=== PATIENT | female | born 1955 | race Caucasian/White ===

== ENCOUNTER 2020-09-27 13:32 | Outpatient (CLI) | payer OTHER, SELFPAY ==
--- NOTE | ~2020-09-27 | US_ITS ---
EXAMINATION: US carotid duplex BI DATE: 09/27/2020 14:52 INDICATION: Dizziness. TECHNIQUE: Grayscale, color Doppler, and pulsed Doppler images of the cervical carotid arteries were obtained. The degree of vessel stenosis is placed in one of the following categories: normal, <50%, 5 0-69%, >=70% but less than near-occlusion, near-occlusion, or total occlusion. Note that percent sten osis relative to normal distal artery lumen diameter is indirectly measured from velocity measurement s as described by Sarkis, et al. Radiology 2003; 229:340-346. COMPARISON: None. FINDINGS: RIGHT: The right common carotid artery (CCA) peak systolic velocity (PSV) is 84 cm/s. The right internal car otid artery (ICA) PSV is 99 cm/s. The right ICA end-diastolic velocity (EDV) is 33 cm/s. The right IC A/CCA PSV ratio is 1.2. Grayscale and color Doppler images yield an estimate of <50% diameter reducti on from plaque in the ICA. There is antegrade flow in the right vertebral artery. LEFT: The left CCA PSV is 98 cm/s. The left ICA PSV is 76 cm/s. The left ICA EDV is 20 cm/s. The left ICA/C CA PSV ratio is 0.8. Grayscale and color Doppler images yield an estimate of <50% diameter reduction from plaque in the ICA. There is antegrade flow in the left vertebral artery. IMPRESSION: 1. <50% stenosis in the right internal carotid artery. 2. <50% stenosis in the left internal carotid artery. Reviewed, dictated and finalized at location A.
== END 2020-09-27 13:33 | disposition home or self-care (01) ==
LOC: CHSIMG 13:36
PROVIDERS: PCP Family Medicine; Visit Provider Physician Assistant
DX: R42 Dizziness and giddiness (principal)
CPT/HCPCS: 93880

== ENCOUNTER 2021-02-15 08:08 | Outpatient (CLI) | payer OTHER, SELFPAY ==
--- NOTE | ~2021-02-15 | XR_ITS ---
XR chest 2V DATE: 02/15/2021 08:49 INDICATION: Chest pain, tightness, exertional dyspnea TECHNIQUE: 2 views COMPARISON: None FINDINGS: Normal heart size. No hilar or mediastinal enlargement. No pulmonary infiltrate or consol idation, pulmonary vascular congestion or pleural effusion or pneumothorax. There is aortic arch neo cification. Diffuse osteopenia. [place] device, right humeral head. Surgical clips, upper abdomen IMPRESSION: No active cardiopulmonary disease Reviewed, dictated and finalized at location A.
--- NOTE | ~2021-02-15 | MM_ITS ---
EXAMINATION: MM screening rachel BI w cody HISTORY: Screening mammogram TECHNIQUE: Craniocaudal and mediolateral oblique 3-D tomosynthesis images were obtained and synthetic 2-D images were generated. CAD analysis was submitted and interpreted. COMPARISON: No prior mammogram is available for comparison at this institution. BREAST PARENCHYMAL COMPOSITION: The breasts are almost entirely fatty. FINDINGS: There is no evidence of suspicious mass, calcification, or architectural distortion to sugg est malignancy in either breast. There has been no suspicious interval change. IMPRESSION: 1. No mammographic evidence of malignancy. 2. Recommend routine screening mammography in one year. BI-RADS Category 1: Negative Reviewed, dictated and finalized at location A.
--- NOTE | 2021-02-15 08:35 | ECG_ITS ---
Measurements Intervals [place] Rate: 77 P: 64 MO: 142 QRS: 52 QRSD: 90 T: 90 QT: 358 QTc: 405 Interpretive Statements SINUS RHYTHM BORDERLINE T WAVE ABNORMALITY- ANTEROLAT/HIGH LAT LEADS BASELINE WANDER- I, AVR, AVF, V2 BORDERLINE ECG Electronically Signed On 02-15-2021 9:02:59 CDT by Lloyd Alvarez D.O.
== END 2021-02-15 08:09 | disposition home or self-care (01) ==
LOC: CHSIMG 08:11
PROVIDERS: PCP Family Medicine; Visit Provider Physician Assistant
DX: R06.00 Dyspnea, unspecified (principal)
CPT/HCPCS: 71046; 77063; 77067; 93005

== ENCOUNTER 2021-03-02 14:10 | Outpatient (CLI) | payer OTHER, SELFPAY ==
--- NOTE | 2021-03-02 15:00 | ECHO_ITS ---
Patient Info Name: Mandy Torrez Age: 65 years : 1955 Gender: Female Ht: 65 in Wt: 205 lbs BSA: 2.10 m2 HR: 67 bpm BP: 185 / 87 mmHg Exam Date: 03/02/2021 2:16 PM Exam Location: [facility] Patient Status: Outpatient Admit Date: 03/02/2021 Staff Ordering Physician: Cheyanne, Travis MORTON Marketing Services Specialist: Samy Hodgson, TRINH, RT Attending Provider: Cheyanne, Travis MORTON Exam Type: CA echo doppler color flow Study Info Indications R06.02 - Shortness of breath Complete two-dimensional, color flow and Doppler transthoracic echocardiogram is performed. Strain analysis performed. Summary 1. Complete two-dimensional, color flow and Doppler transthoracic echocardiogram is performed. 2. Left ventricular chamber dimension is normal. 3. Left ventricular systolic function is normal, estimated at 60-65%. 4. The left ventricular diastolic function is grade I diastolic dysfunction. 5. E/e' 9 is minimally elevated. 6. Global longitudinal strain is normal at -17.6%. 7. Left atrial chamber dimension is mildly enlarged. 8. The mitral valve has moderately calcified annulus. 9. There is trace mitral valve regurgitation. Left Ventricle E/e' 9 is minimally elevated. Global longitudinal strain is normal at -17.6%. Left ventricular chamber dimension is normal. Left ventricular systolic function is normal, estimated at 60-65%. The left ventricular diastolic function is grade I diastolic dysfunction. Right Ventricle Right ventricular systolic function is normal and with normal TAPSE 2.1 cm. Right ventricular chamber dimension is normal. Left Atria Left atrial chamber dimension is mildly enlarged. Right Atria Right atrial chamber dimension is normal. Aortic Valve The aortic valve is trileaflet. There is no aortic valve stenosis. There is no aortic valve regurgitation. Pulmonic Valve There is no pulmonic regurgitation. Mitral Valve The mitral valve has moderately calcified annulus. There is no mitral valve stenosis. There is trace mitral valve regurgitation. Tricuspid Valve There is no tricuspid valve regurgitation. Pericardium/Pleural There is no pericardial effusion. Inferior Vena Cava Normal inferior vena cava with >50% collapse upon inspiration consistent with normal right atrial pressure, 5 mmHg. Aorta The aortic root size at the sinus of Valsalva is normal. Left Ventricular Outflow Tract Name Value Normal LVOT 2D LVOT Diameter 2.0 cm LVOT Doppler LVOT Peak Velocity 84 cm/s LVOT Peak Gradient 3 mmHg LVOT Mean Gradient 1 mmHg LVOT VTI 20 cm LVOT VTI/AV VTI Ratio 0.7 LVOT Stroke Volume 64 ml Mitral Valve Name Value Normal MV Doppler MV Decel [place]
== END 2021-03-02 14:11 | disposition home or self-care (01) ==
LOC: CHSIMG 14:11
PROVIDERS: PCP Family Medicine; Visit Provider Physician Assistant
DX: R06.00 Dyspnea, unspecified (principal)
CPT/HCPCS: 93306

== ENCOUNTER 2021-04-17 07:41 | Outpatient (CLI) | payer OTHER, SELFPAY ==
--- NOTE | 2021-04-17 08:20 | EST_ITS ---
Patient Info Name: Mandy Torrez Age: 65 years : 1955 Gender: Female Ht: 64 in Wt: 239 lbs BSA: 2.27 m2 HR: 71 bpm BP: 157 / 86 mmHg Heart Rhythm: Sinus Rhythm Technical Quality: Excellent Exam Date: 04/17/2021 8:34 AM Exam Location: [facility], [place] Patient Status: Outpatient Admit Date: 04/17/2021 Staff Ordering Physician: Cheyanne, Travis MORTON Attending Provider: Cheyanne, Travis MORTON Exercise Technologist: Jossie Heaton CRT Exercise Physician: Jeanine Triplett CEP Exam Type: CA stress milka w NM Study Info Indications VÁZQUEZ - A nuclear stress test was performed. History/Risk Factors Tobacco Use: Former History/Risk Factors Former Smoker. VÁZQUEZ. Summary 1. 1. Negative Lexiscan stress test for ischemic ST changes by ECG criteria. 2. 2. Baseline hypertension. 3. 3. Nuclear scan to follow and will be reported separately. Please correlate with it. Protocol: LEXISCAN Stress ECG Details Stage: REST Duration (min): 0 min : 53 sec HR (bpm): 70 SBP (mmHg): 157 DBP (mmHg): 86 Stage: REST Duration (min): 6 min : 7 sec HR (bpm): 80 SBP (mmHg): 157 DBP (mmHg): 86 Stage: STAGE 1 Duration (min): 0 min : 5 sec HR (bpm): 77 SBP (mmHg): 157 DBP (mmHg): 86 Stage: RECOVERY Duration (min): 0 min : 54 sec HR (bpm): 111 SBP (mmHg): 157 DBP (mmHg): 86 Stage: RECOVERY Duration (min): 1 min : 54 sec HR (bpm): 107 SBP (mmHg): 184 DBP (mmHg): 86 Stage: RECOVERY Duration (min): 2 min : 54 sec HR (bpm): 101 SBP (mmHg): 181 DBP (mmHg): 88 Stage: RECOVERY Duration (min): 3 min : 54 sec HR (bpm): 101 SBP (mmHg): 180 DBP (mmHg): 89 Stage: RECOVERY Duration (min): 4 min : 54 sec HR (bpm): 91 SBP (mmHg): 175 DBP (mmHg): 86 Stage: RECOVERY Duration (min): 5 min : 54 sec HR (bpm): 89 SBP (mmHg): 175 DBP (mmHg): 83 Stage: RECOVERY Duration (min): 6 min : 2 sec HR (bpm): 86 SBP (mmHg): 175 DBP (mmHg): 83 Rest HR: 80 bpm Peak HR: 113 bpm Rest Sys BP: 157 mmHg Peak Sys BP: 184 mmHg Max Pred HR: 157 bpm % Max Pred HR: 72 % Target HR: 133 bpm Max RPP: 20,792 bpm*mmHg Termination Reason: Completed Protocol Cardiac Symptoms: Dyspnea Total Time: 0 min : 5 sec Rest Patel BP: 86 mmHg Peak Patel BP: 86 mmHg Total Dose: 0.4 mg Resting ECG Sinus rhythm with borderline ST-T wave abnormality in diffuse leads. Stress ECG No ST changes. Arrhythmias None. Report Signatures
--- NOTE | 2021-04-17 12:03 | WPDCARIOSTRE ---
Nuclear Stress Test INDICATIONS Indications: Dyspnea PROCEDURE Procedure Performed: Myocardial Perf Spect-Multi Procedure: Patient underwent a lexiscan stress test and immediately was injected with 34.9 mCi of cardiolyte. Multiple tomographic images were obtained. These were of good quality. There is evidence of a small size, mild severity apical perfusion defect during stress imaging. A separate resting images were obtained after patient was injected with 10.5 mCi of cardiolyte. Multiple tomographic images were obtained. These were of good quality. There is evidence of a moderate size, moderate severity apical perfusion defect during rest imaging. CONCLUSION Conclusion: 1. Myocardial perfusion imaging demonstrating perfusion defects that are worse during rest imaging that stress imaging in LV apex suggesting breast attenuation artifact. 2. No evidence of reversible ischemia. 3. Left ventriculogram demonstrates normal measured ejection fraction of 67%. No wall motion abnormalities. 4. TID score 1.07 is normal.
== END 2021-04-17 07:42 | disposition home or self-care (01) ==
LOC: CHSIMG 07:42
PROVIDERS: PCP Physician Assistant; Visit Provider Physician Assistant
DX: R06.00 Dyspnea, unspecified (principal)
CPT/HCPCS: 78452; 93017; A9502; J2785